=== PATIENT | female | born 1990 | race Hispanic/Latino ===

== ENCOUNTER 2018-04-12 12:29 | Inpatient (IN) | payer BC ==
[2018-04-12 12:40] VITALS: RESP 18
[2018-04-12 13:16] LABS: BASO % 0.5 % (0.0-2.0); EOS # 0.1 K/uL (0.0-0.7); EOS % 1.6 % (0.0-4.0); HEMOGLOBIN 12.5 g/dL (11.0-16.0); LYMPH # 1.7 K/uL (1.0-4.3); LYMPH % 30.2 % (20.0-40.0); MEAN CELL VOLUME 92.6 fL (81.0-99.0); MEAN CORPUSCULAR HEMOGLOBIN 32.1 pg (27.0-31.0); MEAN CORPUSCULAR HGB CONC 34.7 g/dL (33.0-37.0); MONO # 0.4 K/uL (0.0-0.8); MONO % 6.4 % (0.0-10.0); NEUT # 3.4 K/uL (1.8-7.0); NEUT % 61.3 % (50.0-75.0); RBC 3.9 Mil/uL (3.80-5.20); RED CELL DISTRIBUTION WIDTH 11.9 % (11.5-14.5); WHITE BLOOD COUNT 5.6 K/uL (4.8-10.8)
[2018-04-12 13:18] LABS: SQUAMOUS EPITHIAL < 1 /hpf (0-5); URINE BACTERIA RARE (<OCC); URINE BILIRUBIN NEGATIVE (NEGATIVE); URINE BLOOD NEGATIVE (NEGATIVE); URINE CLARITY Clear (Clear); URINE COLOR Straw (YELLOW); URINE GLUCOSE (UA) NORMAL (Normal); URINE LEUKOCYTE ESTERASE TRACE Leu/uL (Negative); URINE PROTEIN NEGATIVE (NEGATIVE); URINE UROBILINOGEN NORMAL mg/dL (0.2-1.0)
[2018-04-12 13:29] LABS: ALB/GLOB RATIO 2.2 (1.0-2.1); ALBUMIN 4.7 g/dL (3.5-5.0); ALT/SGPT 42 U/L (9-52); AST/SGOT 31 U/L (14-36); BLOOD UREA NITROGEN 14 mg/dL (7-17); CALCIUM 9.9 mg/dl (8.6-10.4); GFR AFRICAN-AMERICAN > 60; GFR NON-AFRICAN AMERICAN > 60
[2018-04-12 13:47] LABS: BARBITURATES, UR NEGATIVE (NEGATIVE); BENZODIAZEPINES, UR NEGATIVE (NEGATIVE); OPIATES, UR NEGATIVE (NEGATIVE); PHENCYCLIDINE, UR NEGATIVE (NEGATIVE)
--- NOTE | 2018-04-12 14:34 | C.PDOC ---
History Of Present Illness 27 y/o female presents to ED sent by (Psychiatrist) for further evaluation on depression and suicidal ideation secondary to loss of her dog. Patient admits to feeling depressed, hopeless and suicidal. Patient denies HI, Auditory or visual hallucinations, Substance abuse or any other complaints at this time. Time Seen by Provider: 04/12/18 12:48 Chief Complaint (Nursing): Psychiatric Evaluation History Per: Patient History/Exam Limitations: no limitations Onset/Duration Of Symptoms: Days Suicide/Self Injury Attempted (Context): None Modifying Factor(s): None Associated Symptoms: Depression, Suicidal Thoughts Past Medical History Reviewed: Historical Data, Nursing Documentation, Vital Signs Vital Signs: Last Vital Signs Temp 98.1 F 04/12/18 12:39 Pulse 94 H 04/12/18 12:39 Resp 18 04/12/18 12:39 BP 102/69 04/12/18 12:39 Pulse Ox 99 04/12/18 14:37 - Medical History PMH: Bipolar Disorder (TYPE 2) Surgical History: No Surg Hx Family History: States: No Known Family Hx - Social History Hx Alcohol Use: No Hx Substance Use: Yes Review Of Systems Except As Marked, All Systems Reviewed And Found Negative. Psych: Positive for: Depression, Suicidal ideation Physical Exam - Physical Exam Appears: Non-toxic, No Acute Distress Skin: Warm, Dry, No Rash Head: Atraumatic, Normacephalic Eye(s): bilateral: Normal Inspection Oral Mucosa: Moist Neck: Normal ROM, Supple Cardiovascular: Rhythm Regular Respiratory: Normal Breath Sounds, No Rales, No Rhonchi, No Wheezing Gastrointestinal/Abdominal: Soft, No Tenderness, No Guarding, No Rebound Extremity: Normal ROM, Capillary Refill (<2 seconds) Neurological/Psych: Oriented x3, Normal Speech, Normal Cognition ED Course And Treatment - Laboratory Results Result Diagrams: 04/12/18 13:08 04/12/18 13:08 O2 Sat by Pulse Oximetry: 99 (RA) Pulse Ox Interpretation: Normal Medical Decision Making Medical Decision Making: Assessment: Depression Porgress: Patient medically cleared and evaluated by Crisis Patient admit to Dr. Michelle Disposition Discussed With : Rody Michelle Doctor Will See Patient In The: Hospital Counseled Patient/Family Regarding: Studies Performed, Diagnosis - Disposition Disposition: HOSPITALIZED Disposition Time: 14:35 Condition: STABLE Forms: [employer] (Thai) - Clinical Impression Clinical Impression: Acute stress disorder - Scribe Statement The provider has reviewed the documentation as recorded by the Riveraiblizy Linda All medical record entries made by the Riveraiblizy were at my direction and personally dictated by me. I have reviewed the chart and agree that the record accurately reflects my personal performance of the history, physical exam, medical decision making, and the department course for this patient. I have also personally directed, reviewed, and agree with the discharge instructions and disposition.
--- NOTE | 2018-04-12 14:35 | C.PDOC ---
Time Seen by Provider: 04/12/18 12:48 Chief Complaint (Nursing): Psychiatric Evaluation Past Medical History Vital Signs: Last Vital Signs Temp 98.1 F 04/12/18 12:39 Pulse 94 H 04/12/18 12:39 Resp 18 04/12/18 12:39 BP 102/69 04/12/18 12:39 Pulse Ox 99 04/12/18 14:34 - Medical History PMH: Bipolar Disorder (TYPE 2) Denies: Diabetes, Hepatitis, HIV, HTN, Seizures, Sexually Transmitted Disease - Social History Hx Alcohol Use: No Hx Substance Use: Yes ED Course And Treatment - Laboratory Results Result Diagrams: 04/12/18 13:08 04/12/18 13:08 O2 Sat by Pulse Oximetry: [address] Rody Michelle Doctor Will See Patient In The: Hospital Counseled Patient/Family Regarding: Studies Performed, Diagnosis - Disposition Disposition: HOSPITALIZED Disposition Time: 14:35 Condition: STABLE Forms: [employer] [facility] (Maldivian) - Clinical Impression Clinical Impression: Acute stress disorder
[2018-04-12] MEDS ORDERED: Patient's Own Medication - Tablet/Capusle PO SCH ×2 (20:00→20:24)
--- NOTE | 2018-04-12 21:28 | PCM.BM ---
<Kaylee Lazaro - Last Filed: 04/12/18 21:25> Treatment Plan Problems - Problems identified on initial assessmt Depression Date Initiated: 04/12/18 Time Initiated: 16:15 Assessment reference: NA Suicidal ideation Date Initiated: 04/12/18 Time Initiated: 16:15 Assessment reference: NA Status: Active Treatment assets and liabiliti Patient Assests: negotiates basic needs Patient Liabilities: substance abuse (Marijuana), medical problems (herniated discs) - Milieu Protocol Maintain good personal hygiene: daily Encourage regular showers, daily Remind patient to perform daily oral care, every shift Assist patient to perform ADL's Conduct patient checks and document Observation sheet: Q15 minutes Maintain personal safety: every shift Educate patient to report safety concerns to staff, every shift Monitor environment for contraband/sharps Medication safety: Monitor for expected outcome, potential side effects: every shift, Assess barriers to learning: every shift, Assess readiness for medication education: every shift <Rody Michelle - Last Filed: 04/14/18 10:50> - Diagnosis (1) Bipolar 1 disorder, depressed, severe Status: Acute Interventions: 04/14/18 10:50 * Assess/adjust medications daily and /or as needed * See patient on an individual basis 7x/week to assess level of manic behaviors and stability * Discuss risks, benefits, side effects and alternatives of medications * <Kim Feliz - Last Filed: 04/14/18 14:10> Family Contact Family involvement: Patient does not wish Family/SO involvement Family contact: Patient declines to allow family contact at present - Goals for Treatment Patient goals for treatment: "I want to retunr to my psychologist and therapist. " Discharge/Continuing Care - Education Needs Education Needs: Patient Medication, Patient Diagnosis/Disease Process, Patient Coping Skills - Discharge Discharge Criteria: Free of Suicidal thoughts, Normal sleep pattern, Ability to care for self, Reduction of target symptoms Discharge to:: Home - Treatment Team Participation Discussed with Family/SO: No Was Patient/Family/SO present at Treatment Team Meeting: Yes
[2018-04-12] MEDS: Patient's Own Medication - Tablet/Capusle PO SCH ×2 (21:45→22:06)
[2018-04-13] MEDS: Patient's Own Medication - Tablet/Capusle PO SCH ×4 (09:41→17:17)
--- NOTE | 2018-04-13 10:22 | PCM.PSYCH ---
Initial Psychiatric Evaluation - Initial Psychiatric Evaluation Type of Admission: Voluntary Legal Status: Capacity Chief Complaint (in patient's own words): I was feeling depressed and suicidal.' History of Present Illness and Precipitating Events: Pt is a 27 y/o CF, who presented to the ED with depressed mood and suicidal ideation. Pt denies any history of any inpatient psychiatric hospitalization. However she reports history of follow-up with a psychiatrist regularly. Pt reports she saw her psychologist on Tuesday, who expressed concern about pt as she "is not getting better," and requires a higher level of care. Pt states she has been experiencing vague Suicidal ideation, since the recent tragic loss of her dog, almost 4 months ago. Pt states that she feels "no reason to live anymore, my dog gave my life purpose." Pt states she has no active plan to kill herself, but "it's in the back of my mind, especially when I'm alone." Pt states she recently found her dog "mauled to " by another dog. Pt states finding her dog in that condition, and having constant flashbacks and "images of my dog like that, I can't stop seeing him." Pt's primary support was her dog, and has fostered dogs in the past due to the therapeutic nature of caring for an animal , and her love for them. Pt reports history of suicidal ideation but denies history of suicide attempts in the past. Pt states she was diagnosed with Bipolar II Disorder 1.5 years ago , but has been "predominantly really low especially since my dog ." Pt states she has had manic symptoms prior to her diagnosis, such as "elevated mood , rapid speech, no need for sleep, impulsive behavior," but "it never had a label on it." Pt reports smoking marijuana most nights to help her sleep, but states that "lately I just can't sleep at all." Pt also reports history of self mutilation via burning/cutting, and was in remission for "nearly 2 years, but was cutting every now and again x1 year ago, but I have been cutting and burning regularly now." Pt states she montes her arm and cuts herself on " various areas of my body." 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 However she denies any auditory hallucinations. PMH: Neck pain Current Medications: Active Medications Generic Name Dose Route Start Last Admin Trade Name Freq PRN Reason Stop Dose Admin Clonazepam 1 mg 04/12/18 19:47 04/13/18 09:42 Klonopin PO 1 mg TID ENMANUEL Administration Home Med 1 tab 04/12/18 19:57 04/13/18 09:41 Patient's Own Medication PO 1 tab DAILY ENMANUEL Administration Home Med 1 tab 04/12/18 21:00 04/13/18 09:42 Patient's Own Medication PO 1 tab TID ENMANUEL Administration Ibuprofen 600 mg 04/12/18 20:03 Motrin Tab PO Q6H PRN Pain, moderate (4-7) Lamotrigine 300 mg 04/12/18 19:45 04/12/18 20:22 Lamictal PO Not Given DAILY ENMANUEL Zolpidem Tartrate 5 mg 04/12/18 19:39 04/12/18 22:09 Ambien PO 5 mg HS PRN Administration Insomnia Past Psychiatric History - Past Psychiatric History Previous Treatment History: None Pertinent Medical Hx (Current Medical&Sleep Prob, Allergies): Allergies Allergy/AdvReac Type Severity Reaction Status Date / Time Penicillins Allergy Verified 04/12/18 12:46 Cariprazine HCl [Vraylar] 4.5 mg PO DAILY 04/12/18 Clonazepam 1 mg PO TID 04/12/18 Dextroamphetamine/Amphetamine [Adderall] 15 mg PO DAILY 04/12/18 Lamotrigine [Lamictal] 300 mg PO DAILY 04/12/18 [place] Carbonate [[place] Carbonate 300MG] 300 mg PO DAILY 04/12/18 Meloxicam [Mobic] 15 mg PO DAILY 04/12/18 Zolpidem [Ambien] 10 mg PO HS 04/12/18 Review of Systems - Review of Systems All systems: reviewed and no additional remarkable complaints except - Psychiatric Psychiatric: Anxiety, Irritability, Mood Swings, Paranoia, Suicidal Ideation Mental Status Examination - Personal Presentation Personal Presentation: Looks stated age - Affect Affect: Constricted - Motor Activity Motor Activity: Calm - Reliability in Providing Information Reliability in Providing Information: Poor, due to alteration in thoughts - Speech Speech: Organized - Mood Mood: Anxious - Formal Thought Process Formal Thought Process: Hallucinations, Delusions - Hallucinations/Delusions Hallucinations: Visual Delusions: Persecution - Obsessions/Compulsions Obsessions: No Compulsions: No - Cognitive Functions Orientation: Person, Place, Situation, Time Sensorium: Alert Attention/Concentration: Attentive Abstract Thinking: Damon Estimate of Intelligence: Below average Judgement: Imparied, as evidence by: Poor judgement, Imparied, as evidence by: Lack of insight into illness - Risk Risk: Suicidal, Diminished functioning - Limitations Limitations: Living alone DSM 5 DX - DSM 5 DSM 5 Diagnosis: Bipolar disorder mixed severe with psychotic features PTSD chronic Cannabis use disorder moderate - Recommended/Plan of Treatment Treatment Recommendations and Plan of Treatment: Bipolar disorder mixed severe with psychotic features PTSD chronic Cannabis use disorder moderate CBT Psychoeducation Supportive therapy, individual therapy Decrease Ambien 5 mg HS Meloxicam 15mg Q Daily Continue [place] Carbonate 300mg Q Daily Continue Lamictal 300mg Q Daily D/C Adderall 15mg Q Daily D/C Clonazepam 1mg TID Continue Vraylar 4.5mg Q Daily Trazodone 100 mg PO QHS Hydroxyzine 25 mg PO Q6 hrprn Neck pain Continue prescribed medications Monitor for signs and symptoms - Smoking Cessation Smoking Cessation Initiated: No
[2018-04-14 06:16] VITALS: O2SAT 98
[2018-04-14] MEDS: Patient's Own Medication - Tablet/Capusle PO SCH ×2 (09:54)
--- NOTE | 2018-04-14 12:52 | PCM.PYCHPN ---
Psychiatric Progress Note - Psychiatric Progress Note Patient seen today, length of contact: 15 min Patient Chief Complaint: I m feeling depressed' Problems Identified/Issues Discussed: Patient seen and evaluated, chart reviewed and discussed with the nurse. Patient remained depressed, tearful and isolated. She still reports depressed mood and at times feelings of hopelessness and helplessness. She also reports irritability, racing thoughts and anxiety. As per the staff, she appears depressed and isolated. However she reports some improvement in her paranoia. She is taking medication but denies any any side effects. She needs to stay longer for further stabilization. Supportive therapy and psychoeducation were given Medication Change: Yes (increase lithium) Medical Record Reviewed: Yes Mental Status Examination - Cognitive Function Orientation: Person, Place, Situation, Time Memory: Intact Attention: WNL Concentration: Poor Association: WNL Fund of Knowledge: Poor - Mood Mood: Anxious - Affect Affect: Constricted - Speech Speech: Soft - Formal Thought Process Formal Thought Process: Paranoia - Suicidal Ideation Suicidal Ideation: No - Homicidal Ideation Homicidal Ideation: No Goal/Treatment Plan - Goal/Treatment Plan Need for Continued Stay: Severe depression anxiety, Severe functional impairment Progress Toward Problem(s) and Goals/Treatment Plan: Bipolar disorder mixed severe with psychotic features PTSD chronic Cannabis use disorder moderate CBT Psychoeducation Supportive therapy, individual therapy Ambien 5 mg HS Meloxicam 15mg Q Daily Increase [place] Carbonate 600 mg Q TID Lamictal 300mg Q Daily D/C Vraylar 4.5mg Q Daily Trazodone 100 mg PO QHS Hydroxyzine 25 mg PO Q6 hrprn Neck pain Continue prescribed medications Monitor for signs and symptoms
--- NOTE | 2018-04-15 15:38 | PCM.PYCHPN ---
Psychiatric Progress Note - Psychiatric Progress Note Patient seen today, length of contact: 15 min Patient Chief Complaint: "My depression is getting better." Problems Identified/Issues Discussed: Pt was seen and evaluated. Chart reviewed. Nurse input received that pt is attending groups and therapy. Pt reported improvement in depression and SI. Pt denied any suicide attempt. Pt reported she is feeling Fine. She learned different coping skills including writing journal, listening music, and reading books. Pt stated that she enjoys attending groups. Pt reported she still grieving on her dogs . 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 Pt has a f/u appointment with therapist on Tuesday. Pt stated adjustment in her medication is helpful. Pt is compliant with meds and denied side effects of meds. Pt stated in past she has self mutilated behavior to release stress in the past. Pt stated that she never attempted suicide. Pt stated she has no access to firearms. She wants to live better and good life. Pt stated that she enjoys helping saving animals life. Pt stated she had financial issues. Pt reported improvement in her sleep, appetite, helplessness, and hopelessness. She has good social support from her friend. Pt denied perceptual disturbances. Pt denied anxiety symptoms. Pt denied HI, intent or plan. Pt signed 48 hour sign out note yesterday. DSM 5 Symptoms Update: Bipolar disorder mixed severe with psychotic features PTSD chronic Cannabis use disorder moderate Medication Change: No Medical Record Reviewed: Yes Mental Status Examination - Cognitive Function Orientation: Person, Place, Situation, Time Memory: Intact Attention: WNL Concentration: Poor Association: WNL Fund of Knowledge: Poor Decription of patient's judgement and insights: improving/improving - Mood Mood: Neutral - Affect Affect: Constricted - Speech Speech: Appropriate, Soft - Formal Thought Process Formal Thought Process: No Impairment Psychotic Thoughts and Behaviors: denied - Suicidal Ideation Suicidal Ideation: No Plan: denied - Homicidal Ideation Homicidal Ideation: No Plan: denied Goal/Treatment Plan - Goal/Treatment Plan Need for Continued Stay: Severe depression anxiety, Severe functional impairment Progress Toward Problem(s) and Goals/Treatment Plan: Continue current treatment as before Supportive therapy provided Therapy in milieu. Estimated Date of D/C: 04/16/18 - Smoking Cessation Smoking Cessation Initiated: No
[2018-04-16 06:19] VITALS: BP 100/64; PULSE 93; TEMP 98.3
--- NOTE | 2018-04-16 09:41 | PCM.PYCHDC ---
Mental Status Examination - Mental Status Examination Orientation: Person, Place, Situation, Time Memory: Intact Mood: Neutral Affect: Broad Speech: Appropriate Attention: WNL Concentration: WNL Association: WNL Fund of Knowledge: WNL Formal Thought Process: No Impairment Description of patient's judgement and insight: improved/improved Psychotic Thoughts and Behaviors: denied Suicidal Ideation: No Current Homicidal Ideation?: No Plan: denied Discharge Summary - Discharge Note Reason for Hospitalization: As per initial psych eval: Pt is a 27 y/o CF, who presented to the ED with depressed mood and suicidal ideation. Pt denies any history of any inpatient psychiatric hospitalization. However she reports history of follow-up with a psychiatrist regularly. Pt reports she saw her psychologist on Tuesday, who expressed concern about pt as she "is not getting better," and requires a higher level of care. Pt states she has been experiencing vague Suicidal ideation, since the recent tragic loss of her dog, almost 4 months ago. Pt states that she feels "no reason to live anymore, my dog gave my life purpose." Pt states she has no active plan to kill herself, but "it's in the back of my mind, especially when I'm alone." Pt states she recently found her dog "mauled to " by another dog. Pt states finding her dog in that condition, and having constant flashbacks and "images of my dog like that, I can't stop seeing him." Pt's primary support was her dog, and has fostered dogs in the past due to the therapeutic nature of caring for an animal , and her love for them. Pt reports history of suicidal ideation but denies history of suicide attempts in the past. Pt states she was diagnosed with Bipolar II Disorder 1.5 years ago , but has been "predominantly really low especially since my dog ." Pt states she has had manic symptoms prior to her diagnosis, such as "elevated mood , rapid speech, no need for sleep, impulsive behavior," but "it never had a label on it." Pt reports smoking marijuana most nights to help her sleep, but states that "lately I just can't sleep at all." Pt also reports history of self mutilation via burning/cutting, and was in remission for "nearly 2 years, but was cutting every now and again x1 year ago, but I have been cutting and burning regularly now." Pt states she montes her arm and cuts herself on " various areas of my body." 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 However she denies any auditory hallucinations. PMH: Neck pain Consultations:: List each consultation separately and include: 1. Reason for request. 2. Findings. 3. Follow-up Summary of Hospital Course include:: 1. Description of specific treatment plan utilized for patients during their course of treatmen. 2. Summarize the time- course for resolution of acute symptoms and/or regressed behaviors. 3. Describe issues identified and worked on during hospitalization. 4. Describe medication utilized. 5. Describe medical problems identified and treated. 6. Reassessment of suicide risk Summary of Hospital Course: The pt was admitted for worsening of depression as well for PTSD symptoms. Pt received psychotherapy, supportive psychotheraspy, psychoeducation and medications management. CA and CBT techniques were used. Her medication were adjusted. The pt was compliant with the treatment. The pt attended groups and activities, as well as milieu therapy. All the risks and benefits of medications were discussed and the patient understood and agreed. The pt mood symptoms improved with the treatment. Pt appreciate the treatment and care which was provided to him. Pt requested earlier discharge and signed 48 hour notice. Colalteral information was obtained from pt's friend/accounts payable supervisor Sol, who knows pt for many years. Sol reported that pt never attempted suicide, and had no intent in the past. Pt is hard working and foster animals. Pt has financial issues. However, she still able to continue her treatment and therapy at [facility]. At the time of d/c pt denied any depressive symptoms, manic symptoms. He denied any SI, HI, intent or plan. She has no access to guns. She likes to enjoy reading books, writing journal and helping needy dogs. Pt denied any perceptual disturbances. He had behavioral issues. Psychoeducation was provided to the pt to be compliant with the medication, treatment plan and f/u plan after the discharge. Pt has an appointment with therapist on Tuesday04/17/18. After care plan was discussed with the patient. - Diagnosis (1) PTSD (post-traumatic stress disorder) Status: Resolved (2) Bipolar 1 disorder, depressed, severe Status: Resolved - Final Diagnosis (DSM 5) Condition upon Discharge: STABLE Disposition: HOME/ ROUTINE Prescriptions/Medication Reconciliation: Lamotrigine [Lamictal] 300 mg PO DAILY 15 Days #30 tab [place] Carbonate [[place] Carbonate 300MG] 600 mg PO TID 15 Days #45 cap - Smoking Cessation Smoking Cessation Medication prescribed: Yes - Antipsychotic Medications Pt discharged on 2 or more routine antipsychotic medications: No
== END 2018-04-16 10:00 | disposition home or self-care (01) | DRG 885 ==
LOC: C.ER 12:29 → C.5E 14:34
PROVIDERS: ADMIT Psychiatry & Neurology Psychiatry; ATTEND Psychiatry & Neurology Psychiatry
PROC: GZHZZZZ Group Psychotherapy (ICD-10-PCS; principal; 2018-04-12)
PROC: GZ58ZZZ Individual Psychotherapy, Cognitive-Behavioral (ICD-10-PCS; 2018-04-12)
PROC: GZ56ZZZ Individual Psychotherapy, Supportive (ICD-10-PCS; 2018-04-12)
PROC: HZ52ZZZ Individual Psychotherapy for Substance Abuse Treatment, Cognitive-Behavioral (ICD-10-PCS; 2018-04-12)
PROC: HZ59ZZZ Individual Psychotherapy for Substance Abuse Treatment, Supportive (ICD-10-PCS; 2018-04-12)
PROC: HZ56ZZZ Individual Psychotherapy for Substance Abuse Treatment, Psychoeducation (ICD-10-PCS; 2018-04-12)
PROC: HZ42ZZZ Group Counseling for Substance Abuse Treatment, Cognitive-Behavioral (ICD-10-PCS; 2018-04-12)
PROC: HZ46ZZZ Group Counseling for Substance Abuse Treatment, Psychoeducation (ICD-10-PCS; 2018-04-12)
DX: F31.64 Bipolar disorder, current episode mixed, severe, with psychotic features (principal); R45.851 Suicidal ideations; F43.12 Post-traumatic stress disorder, chronic; F43.0 Acute stress reaction; F12.20 Cannabis dependence, uncomplicated; F41.8 Other specified anxiety disorders; M54.2 Cervicalgia; G47.00 Insomnia, unspecified; Z88.0 Allergy status to penicillin